=== PATIENT | female | born 1985 | race Hispanic/Latino ===

== ENCOUNTER 2022-03-03 08:30 | Inpatient (IN) | payer MEDICAID ==
[2022-03-03 10:43] LABS: Basophils % (Auto) 0.1 % (0.0-1.8); Eosinophils % (Auto) 0.2 % (0.0-4.3); Hematocrit 29.6 % (30.3-42.9); Hemoglobin 9.7 gm/dl (10.1-14.3); Lymphocytes # (Auto) 1.7 K/mm3 (1.2-5.4); Lymphocytes % (Auto) 13.5 % (13.4-35.0); Mean Corpuscular HGB Conc 33 % (30-34); Mean Corpuscular Volume 87 fl (79-97); Monocytes # (Auto) 0.5 K/mm3 (0.0-0.8); Monocytes % (Auto) 4.3 % (0.0-7.3); Platelet Count 254 K/mm3 (140-440); Red Cell Distribution Width 15.8 % (13.2-15.2)
[2022-03-03] MEDS ORDERED: OXYTOCIN 10 UNIT/1 ML INJ IM PRN (12:03)
[2022-03-03] MEDS ORDERED: TERBUTALINE 1 MG/1 ML INJ SUB-Q PRN (12:03)
[2022-03-03] MEDS ORDERED: LOPERAMIDE 2 MG CAP PO PRN (12:03)
[2022-03-03] MEDS ORDERED: miSOPROStol 200 MCG TAB PR PRN (12:03)
[2022-03-03] MEDS ORDERED: LIDOCAINE (2%) 20 MG/1 ML VIAL 20 ML MDV INFILTRATI ONE (12:03)
[2022-03-03] MEDS ORDERED: CARBOPROST TROMETHAMINE 250 MCG/1 ML INJ IM PRN (12:03)
[2022-03-03] MEDS ORDERED: METHYLERGONOVINE MALEATE 0.2 MG/ML VIAL IM PRN (12:03)
[2022-03-03] MEDS ORDERED: BUTORPHANOL 2 MG/1 ML INJ IV PRN (12:30)
[2022-03-03] MEDS ORDERED: OXYTOCIN DRIP 30,000 MILLIUNITS/500 ML BAG IV ONE (12:43)
[2022-03-03] MEDS: LACTATED RINGERS 1,000 ML IV SCH ×4 (12:48→23:23)
[2022-03-03] MEDS ORDERED: OXYTOCIN DRIP 30 UNITS/500 ML BAG IV SCH ×2 (13:00)
[2022-03-03] MEDS ORDERED: LACTATED RINGERS 1,000 ML IV SCH (13:00)
--- NOTE | 2022-03-03 19:44 | History and Physical Report ---
History of Present Illness Date of examination: 03/03/22 Date of admission: 03/03/2022 Chief complaint: I'm here to be induced History of present illness: Patient is a 36-year-old 3 para 2 who presents for induction of labor at 41 weeks gestation secondary to postdates. She has an EDC of February 24, 2022. She has had a relatively uncomplicated course all of her labs have been negative she is GBS negative. She is advanced maternal age. Past History Past Medical History: no pertinent history Family/Genetic History: none Social history: - Obstetrical History Expected Date of Delivery: 02/24/22 Actual Gestation: 41 Week(s) 0 Day(s) : 3 Para: 2 Medications and Allergies Allergies Allergy/AdvReac Type Severity Reaction Status Date / Time No Known Allergies Allergy Unverified 03/03/22 09:13 Home Medications Medication Instructions Recorded Confirmed Last Taken Type No Known Home Medications [No 03/03/22 03/03/22 Unknown History Reported Home Medications] Active Meds: Active Medications Butorphanol Tartrate (Butorphanol 2 Mg/1 Ml Inj) 2 mg IV Q2H PRN PRN Reason: Pain , Severe (7-10) Carboprost Tromethamine (Carboprost Tromethamine 250 Mcg/1 Ml Inj) 250 mcg IM ONCE PRN PRN Reason: Uterine Bleeding Ephedrine Sulfate (Ephedrine Sulfate 50 Mg/1 Ml Inj) 10 mg IV Q2M PRN PRN Reason: Hypotension Lactated Ringer's (Lactated Ringers) 1,000 mls @ 125 mls/hr IV DIRECT TOOTIE Last Admin: 03/03/22 18:45 Dose: 125 mls/hr Oxytocin/Sodium Chloride (Pitocin/Ns 30 Unit/500ml) 30 units in 500 mls @ 2 mls/hr IV TITR TOOTIE; Protocol Last Titration: 03/03/22 15:59 Dose: 14 ml/hr, 14 mls/hr Lactated Ringer's (Lactated Ringers) 1,000 mls @ 125 mls/hr IV DIRECT TOOTIE Oxytocin/Sodium Chloride (Pitocin/Ns 30 Unit/500ml) 30 units in 500 mls @ 40 mls/hr IV TITR TOOTIE; Protocol Loperamide HCl (Loperamide 2 Mg Cap) 2 mg PO ONCE PRN PRN Reason: give with Hemabate Methylergonovine Maleate (Methylergonovine Maleate 0.2 Mg/Ml Vial) 0.2 mg IM ONCE PRN PRN Reason: Uterine Bleeding Mineral Oil (Mineral Oil 30 Ml Oral Liqd) 30 ml PO QHS PRN PRN Reason: Constipation Misoprostol (Misoprostol 200 Mcg Tab) 800 mcg IA ONCE PRN PRN Reason: Uterine Bleeding Oxytocin (Oxytocin 10 Unit/1 Ml Inj) 10 unit IM ONCE PRN PRN Reason: Uterine Bleeding Terbutaline Sulfate (Terbutaline 1 Mg/1 Ml Inj) 0.25 mg SUB-Q ONCE PRN PRN Reason: Hyperstimulation/Hypertonicity Review of Systems All systems: negative Constitutional: fatigue Breasts: deferred Gastrointestinal: abdominal pain Genitourinary: contractions - Vital Signs Vital signs: Vital Signs Temp Pulse Resp BP 99.3 F 106 H 14 122/57 03/03/22 09:14 03/03/22 09:14 03/03/22 09:14 03/03/22 09:14 Temp Pulse Resp BP Pulse Ox 98.6 F 75 14 110/53 03/03/22 19:07 03/03/22 19:08 03/03/22 09:14 03/03/22 19:08 - Physical Exam Breasts: Cardiovascular: Regular rate, Normal S1, Normal S2 Lungs: Positive: Clear to auscultation, Normal air movement Abdomen: Positive: normal appearance, soft, normal bowel sounds. Negative: distention, tenderness Genitourinary (Female): Positive: normal external genitalia, normal perenium Vulva: both: normal Vagina: Positive: normal moisture. Negative: discharge Cervix: Negative: lesion, discharge Uterus: Positive: normal size, normal contour Adnexa: both: normal Anus/Rectum: Positive: normal perianal skin, heme negative. Negative: rectal mass, hemorrhoids Extremities: Deep Tendon Reflex Grade: Normal +2 - Obstetrical FHR: auscultation normal Uterine Contraction Monitor Mode: Palpation Cervical Dilatation: 1 Cervical Effacement Percentage: 50 station: -3 Uterine Contraction Pattern: Irregular Uterine Contraction Intensity: Moderate Results Result Diagrams: 03/03/22 Unknown Abnormal lab results 03/03/22 Range/Units Unknown WBC 12.3 H (4.5-11.0) K/mm3 RBC 3.40 L (3.65-5.03) M/mm3 Hgb 9.7 L (10.1-14.3) gm/dl Hct 29.6 L (30.3-42.9) % RDW 15.8 H (13.2-15.2) % Seg Neutrophils % 81.9 H (40.0-70.0) % Seg Neutrophils # 10.1 H (1.8-7.7) K/mm3 All other labs normal. Assessment and Plan IUP at 41 weeks here for induction of labor secondary to postdates. Patient was having some irregular contractions on admission. Decision was made to proceed with Pitocin induction. We will begin Pitocin and continue increasing overnight. We will AROM when able. Anticipate .
[2022-03-03] MEDS ORDERED: ePHEDrine SULFATE 50 MG/1 ML INJ IV PRN (21:56)
[2022-03-03] MEDS ORDERED: NALOXONE 0.4 MG/1 ML INJ IV PRN (21:56)
[2022-03-03] MEDS ORDERED: MINERAL OIL 30 ML ORAL LIQD PO PRN (22:00)
[2022-03-03] MEDS ORDERED: fentaNYL-BUPIV 2 MCG/ML-0.125% 200 MCG/100 ML BAG EPIDURAL SCH (22:00)
[2022-03-03] MEDS: ePHEDrine SULFATE 50 MG/1 ML INJ IV PRN ×3 (23:03→23:26)
--- NOTE | 2022-03-03 23:05 | Anesthesia Consultation ---
Anesthesia Consult and Med Hx Date of service: 03/03/22 - Airway Anesthetic Teeth Evaluation: Poor ROM Head & Neck: Adequate Mental/Hyoid Distance: Adequate Mallampati Class: Class II Intubation Access Assessment: Probably Good - Pulmonary Exam CTA: Yes - Cardiac Exam Cardiac Exam: RRR - Pre-Operative Health Status ASA Pre-Surgery Classification: ASA2 Proposed Anesthetic Plan: Epidural - Pulmonary Hx Smoking: Yes (3cig/per/day x10yrs) Hx Asthma: No Hx Respiratory Symptoms: No - Cardiovascular System Hx Hypertension: No - Central Nervous System Hx Seizures: No Hx Psychiatric Problems: No - Endocrine Hx Renal Disease: No Hx Hypothyroidism: No Hx Hyperthyroidism: No - Hematic Hx Anemia: No Hx Sickle Cell Disease: No - Other Systems Hx Alcohol Use: No Hx Substance Use: No
--- NOTE | 2022-03-03 23:06 | Progress Note ---
Labor Epidural - Labor Epidural Start Time: 22:42 Stop Time: 22:51 Performed by:: NICOLE DELGADO Procedure: Patient is requesting epidural for labor pain. H&P and labs reviewed. Procedure explained, questions answered, consent obtained. Patient placed in sitting position with monitors applied. Timeout performed immediately before start of procedure. Prep/drape in usual sterile fashion. Skin localized 3 mL 1% lidocaine at L[3]-L[4] interspace. 17-gauge Touhy epidural needle advanced to ADINA with saline at [6] cm. No blood/CSF noted via epidural needle. Epidural catheter advanced to [10] cm. Negative aspiration for blood and CSF via catheter, negative response to test dose 3 ml 1.5% lidocaine w/ Epi. Sterile dressing applied followed by tape reinforcement. Patient tolerated procedure well. No immediate complications noted.
[2022-03-04] MEDS ORDERED: LIDOCAINE (2%) 20 MG/1 ML VIAL 20 ML MDV INFILTRATI ONE (00:12)
--- NOTE | 2022-03-04 01:17 | Procedure Note ---
OB Delivery Note - Delivery Date of Delivery: 03/04/22 Engine Mechanic: DUSTIN LACY Estimated blood loss: 200cc - Vaginal Delivery presentation: vertex Delivery position: OA Intrapartum events: none Delivery induction: oxytocin Delivery augmentation: rupture of membranes Delivery monitor: external FHT, external uterine Delivery placenta: spontaneous Delivery cord: 3 umbilical vessels Episiotomy: none Delivery laceration: none Anesthesia: epidural Delivery comments: Viable female delivered over intact perineum at 0054 a.m. Infant had no sign of nuchal cord. had spontaneous cry and was placed on maternal abdomen. Cord was clamped and cut when finished pulsating. Weight 7 pounds 15 ounces. Apgars 8/9. Placenta was delivered spontaneously and intact with three-vessel cord. Patient did not have any lacerations. Excellent hemostasis. Patient tolerated procedure well. - Infant A at 1 minute: 8 at 5 minutes: 9 Infant Gender: Female (7 pounds 15 ounces 3610 g)
[2022-03-04] MEDS ORDERED: HYDROcodone/ACETAMINOPHEN 5-325 MG TAB PO PRN (02:38)
[2022-03-04] MEDS ORDERED: MAGNESIUM HYDROXIDE (MOM) ORAL LIQD UDC PO PRN (02:38)
[2022-03-04] MEDS ORDERED: WITCH HAZEL/ GLYCERIN PAD TP PRN (02:38)
[2022-03-04] MEDS ORDERED: PROMETHAZINE 25 MG TAB PO PRN (02:38)
[2022-03-04] MEDS ORDERED: diphenhydrAMINE 25 MG CAP PO PRN (02:38)
[2022-03-04] MEDS ORDERED: LANOLIN/ZINC/DIMETHICONE (LANSINOH) 7 GM TP PRN (02:38)
[2022-03-04] MEDS ORDERED: PROMETHAZINE 25 MG RECT SUPP PR PRN (02:38)
[2022-03-04] MEDS ORDERED: ONDANSETRON 4 MG/2 ML INJ IV PRN (02:38)
[2022-03-04] MEDS ORDERED: ACETAMINOPHEN 325 MG TAB PO PRN (02:38)
[2022-03-04] MEDS: IBUPROFEN 800 MG TAB PO SCH ×4 (03:23→23:42)
[2022-03-04] MEDS: DOCUSATE SODIUM 100 MG CAP PO SCH ×2 (12:29→23:43)
--- NOTE | 2022-03-04 15:12 | Post Anesthesia Evaluation ---
- Post Anesthesia Evaluation Patient Participated: Yes Airway Patent: Yes Stable Respiratory Function: Yes Nausea/Vomiting: No Temp > 96.8F: Yes Pain Manageable: Yes Adequeate Hydration: Yes Anesthesia Complications: No Block Receding Appropriately: Yes Patient on Ventilator: No
[2022-03-04 16:38] LABS: Hematocrit 22.3 % (30.3-42.9); Hemoglobin 7.2 gm/dl (10.1-14.3)
[2022-03-04] MEDS: PRENATAL VIT27-FE FUMARATE-FOLIC ACID VIT TAB PO SCH (19:12)
[2022-03-04] MEDS: FERROUS SULFATE 325 MG TAB PO SCH (23:43)
[2022-03-05] MEDS: IBUPROFEN 800 MG TAB PO SCH (06:06)
[2022-03-05] MEDS: PRENATAL VIT27-FE FUMARATE-FOLIC ACID VIT TAB PO SCH (10:01)
[2022-03-05] MEDS: FERROUS SULFATE 325 MG TAB PO SCH (10:01)
[2022-03-05] MEDS: DOCUSATE SODIUM 100 MG CAP PO SCH (10:01)
--- NOTE | 2022-03-05 11:51 | Discharge Summary ---
Providers - Providers Date of Admission: 03/04/22 01:43 Date of discharge: 03/05/22 Attending physician: DUSTIN LACY Primary care physician: DUSTIN LACY Hospitalization Reason for admission: induction of labor Delivery: Episiotomy: none Laceration: none Other procedures: none complications: none Discharge diagnosis: IUP at term delivered baby: female Hospital course: unremarkable Condition at discharge: Good Disposition: 01 HOME / SELF CARE / HOMELESS - Discharge Diagnoses (1) Spontaneous vaginal delivery Status: Acute Plan - Discharge Medications Prescriptions: Ferrous Sulfate [Feosol 325 MG tab] 325 mg PO BID #60 tablet Ibuprofen [Motrin] 800 mg PO Q8HR PRN #40 tablet PRN Reason: Pain, Moderate (4-6) - Provider Discharge Summary Activity: routine, no sex for 6 weeks, no heavy lifting 4 weeks, no strenuous exercise Diet: routine Instructions: routine Additional instructions: [] Smoking cessation referral if applicable(refer to patient education folder for contact #) [] Refer to [facility] Booklet Call your doctor immediately for: * Fever > 100.5 * Heavy vaginal bleeding ( >1 pad per hour) * Severe persistent headache * Shortness of breath * Reddened, hot, painful area to leg or breast * Drainage or odor from incision. * Keep incision clean and dry at all times and follow doctor's instructions regarding bathing/showering - Follow up plan Follow up: DUSTIN LACY MD [Primary Care Provider] - 14 Days
[2022-03-05 12:08] VITALS: BP 92/48
== END 2022-03-05 13:15 | disposition home or self-care (01) | DRG 775 ==
LOC: TRG 08:30 → LD 08:30 → TRG 03-04 01:42 → LD 03-04 01:43 → OB 03-04 02:39
PROVIDERS: ADMIT Obstetrics & Gynecology; ATTEND Obstetrics & Gynecology
PROC: 10E0XZZ Delivery of Products of Conception, External Approach (ICD-10-PCS; principal; 2022-03-04)
PROC: 10907ZC Drainage of Amniotic Fluid, Therapeutic from Products of Conception, Via Natural or Artificial Opening (ICD-10-PCS; 2022-03-04)
PROC: 3E033VJ Introduction of Other Hormone into Peripheral Vein, Percutaneous Approach (ICD-10-PCS; 2022-03-04)
PROC: 3E0R3BZ Introduction of Anesthetic Agent into Spinal Canal, Percutaneous Approach (ICD-10-PCS; 2022-03-04)
PROC: 00HU33Z Insertion of Infusion Device into Spinal Canal, Percutaneous Approach (ICD-10-PCS; 2022-03-04)
DX: O48.0 Post-term pregnancy (principal); O99.334 Smoking (tobacco) complicating childbirth; F17.210 Nicotine dependence, cigarettes, uncomplicated; Z20.822 Contact with and (suspected) exposure to COVID-19; Z37.0 Single live birth; Z3A.41 41 weeks gestation of pregnancy; Z79.899 Other long term (current) drug therapy
CPT/HCPCS: 36415; 85014; 85018; 85025; 86592; 86850; 86900; 86901; G0378; J3490; J0595; J2590; J7120; U0003